=== PATIENT | female | born 1995 | race Two or more races ===

== ENCOUNTER 2019-07-19 19:04 | Observation (INO) | payer MEDICAID ==
[~2019-07-19] VITALS: Ht 165.1 cm; Wt 94.3 kg
[~2019-07-19 19:04] MED LIST: PREN27TA7 OR
[2019-07-19] MEDS ORDERED: LACTATED RINGER'S 1,000 ML IV SCH (20:15)
[2019-07-19] MEDS ORDERED: NALBUPHINE HCL 10 MG/1ml INJECTION IM ONE (20:15)
[2019-07-19] MEDS ORDERED: BUTORPHANOL TARTRATE 2 MG/1 ML VIAL IM ONE (21:15)
[2019-07-19] MEDS ORDERED: BUTORPHANOL TARTRATE 2 MG/1 ML VIAL ONE (21:25)
== END 2019-07-19 23:55 | disposition home or self-care (01) | DRG 566 ==
LOC: LDRP 19:04
PROVIDERS: ADMIT Obstetrics & Gynecology; ATTEND Obstetrics & Gynecology
DX: O62.9 Abnormality of forces of labor, unspecified (principal); F17.210 Nicotine dependence, cigarettes, uncomplicated; O99.333 Smoking (tobacco) complicating pregnancy, third trimester; Z3A.38 38 weeks gestation of pregnancy
CPT/HCPCS: 59025; 81002; G0378; J0595; 90686; 96365